=== PATIENT | male | born 1960 | race Two or more races ===

== ENCOUNTER 2017-03-05 11:42 | Emergency (ER) | payer OTHER ==
[~2017-03-05] VITALS: Ht 172.7 cm; Wt 88.3 kg
[~2017-03-05 11:42] MED LIST: IBUP600T26 PO; IBUP800T23 PO
[2017-03-05 11:48] VITALS: BP 160/95; PULSE 88; RESP 16; TEMP 98; O2SAT 97
[2017-03-05] MEDS ORDERED: RESP: ALBUTEROL 2.5 MG/IPRATROPIUM 0.5 MG NEB (SCH) INH ONE (12:00)
--- NOTE | 2017-03-05 12:35 | PD ---
HPI Chief Complaint: ENT Complaint Time Seen by Provider: 11:45 Travel History International Travel<30 days: No Contact w/Intl Traveler<30days: No Traveled to known affect area: No History of Present Illness HPI 56-year-old male presents emergency Department with 1 week history of upper respiratory symptoms including headache, sinus congestion, postnasal drip , left ear pain, and congestion in the chest. He states his cough is worse at night. He is has some wheezing and shortness of breath with exertion. Return beginning and not currently. His cough is not very productive. His upper respiratory symptoms including headache is worse in the past 2 days. He has mild sore throat and irritation, but no difficulty swallowing. He denies heartburn, nausea, or vomiting. He does not normally use an inhaler but has not past for bronchitis. He has no known drug allergies. PFSH Past Medical History Diminished Hearing: No Kidney Stones: Yes Integumentary: Yes (PSORIASIS) Immunizations Current: Yes Influenza Vaccination: No Past Surgical History Other Surgery: Yes (CYST REMOVAL RIGHT BUTTOCK) Social History Alcohol Use: Yes (rare) Tobacco Use: No Substance Use: No Allergies-Medications (Allergen,Severity, Reaction): Coded Allergies: No Known Allergies (Verified , 03/05/17) Reported Meds & Prescriptions Reported Meds & Active Scripts Active Ibuprofen 600 Mg Tab 600 Mg PO Q8H PRN Ibuprofen 800 Mg Tab 800 Mg PO Q6H PRN Review of Systems Except as stated in HPI: all other systems reviewed are Neg General / Constitutional: No: Fever Eyes: No: Visual changes HENT: No: Headaches Cardiovascular: No: Chest Pain or Discomfort Respiratory: No: Shortness of Breath Gastrointestinal: No: Abdominal Pain Genitourinary: No: Dysuria Musculoskeletal: No: Pain Skin: No Rash Neurologic: No: Weakness Psychiatric: No: Depression Endocrine: No: Polydipsia Hematologic/Lymphatic: No: Easy Bruising Physical Exam Narrative GENERAL: Patient appears in no acute distress. SKIN: Warm and dry. Normal color. Normal turgor. HEAD: Atraumatic. Normocephalic. EYES: Pupils equal and round. No scleral icterus. No injection or drainage. ENT: No nasal bleeding or discharge. Mucous membranes pink and moist. Pharynx is somewhat irritated with cobblestoning and postnasal drip present in the posterior pharynx. TMs are dull bilaterally no injection. Patient has moderate sinus tenderness more on the left than the right in both frontal and maxillary sinuses. NECK: Trachea midline. Supple and nontender without significant lymphadenopathy. CARDIOVASCULAR: Regular rate and rhythm. RESPIRATORY: No accessory muscle use. Mild diffuse wheezes throughout to auscultation. No rales or rhonchi. Breath sounds equal bilaterally. GASTROINTESTINAL: Abdomen soft, non-tender, nondistended. Hepatic and splenic margins not palpable. MUSCULOSKELETAL: Extremities without clubbing, cyanosis, or edema. No obvious deformities. NEUROLOGICAL: Awake and alert. No obvious cranial nerve deficits. Motor grossly within normal limits. Five out of 5 muscle strength in the arms and legs. Normal speech. PSYCHIATRIC: Appropriate mood and affect; insight and judgment normal. Data Data Last Documented VS Vital Signs Date Time Temp Pulse Resp B/P Pulse Ox O2 Delivery O2 Flow Rate FiO2 03/05/17 11:48 98.0 88 16 160/95 97 Orders Albuterol-Ipratropium Neb (Duoneb Neb) (03/05/17 12:00) [facility] Medical Decision Making Medical Screen Exam Complete: Yes Emergency Medical Condition: Yes Differential Diagnosis Upper restaurant infection. Sinusitis. Postnasal drip. Cough. Wheezing. Bronchitis. Narrative Course Patient is medically stable at time of exam. Patient is given a DuoNeb to see if it helps him symptomatically. Patient feels improved after his DuoNeb. Patient is felt to have sinusitis and wheezy bronchitis. Patient will be given amoxicillin 875 twice a day 10 days. Patient is given Flonase nasal spray 2 sprays each nostril daily. Patient is given albuterol metered-dose inhaler 2 puffs every 4-6 hours when necessary wheezing. Patient is given Robitussin with codeine 1-2 teaspoons every 6 hours when necessary cough. 120 mL's. Patient follow with his primary care physician if symptoms do not improve or worsen. Diagnosis Primary Impression: Sinusitis, acute Qualified Code: J01.40 - Acute non-recurrent pansinusitis Additional Impression: Acute wheezy bronchitis Referrals: Primary Care Physician Patient Instructions: Acute Bronchitis (ED), General Instructions, How to Use a Metered-Dose Inhaler (ED), Sinusitis (ED) Additional Instructions: Patient feels improved after his DuoNeb. Patient is felt to have sinusitis and wheezy bronchitis. Patient will be given amoxicillin 875 twice a day 10 days. Patient is given Flonase nasal spray 2 sprays each nostril daily. Patient is given albuterol metered-dose inhaler 2 puffs every 4-6 hours when necessary wheezing. Patient is given Robitussin with codeine 1-2 teaspoons every 6 hours when necessary cough. 120 mL's. Patient follow with his primary care physician if symptoms do not improve or worsen. Med/Other Pt SpecificInfo: Prescription(s) given Scripts Guaifenesin-Codeine Liq (Guaifenesin AC Liq)100-10 Mg/5 Ml Syrp10 Ml PO Q6H PRN (COUGH) #120 ML Ref 0 Prov:Silke Joseph MD 03/05/17 Fluticasone Nasal [place] (Flonase Allergy Relief Children Nasal [place])50 Mcg/Act Spray2 [place] EACH NARE DAILY #1 BOTTLE 50 mcg/spray Prov:Silke Joseph MD 03/05/17 Amoxicillin 875 Mg Vtf108 Mg PO BID #20 TAB Prov:Silke Joseph MD 03/05/17 Albuterol 18 GM Inh (Ventolin Hfa 18 GM Inh)90 Mcg/Act Aer2 Puff INH Q4-6H PRN ( SHORTNESS OF BREATH) #1 INHALER Prov:Silke Joseph MD 03/05/17 Disposition: 01 DISCHARGE HOME Condition: Stable Tahir Burnett March 05, 2017 12:35
[2017-03-05] MEDS ORDERED: GUAISYP4 PO (12:37)
[2017-03-05] MEDS ORDERED: FLUT1SPR9 EACH NARE (12:37)
[2017-03-05] MEDS ORDERED: VENTAER INH (12:37)
[2017-03-05] MEDS ORDERED: AMOX875T PO (12:37)
== END 2017-03-05 13:05 | disposition home or self-care (01) ==
LOC: PHEFT 11:42
DX: J01.90 Acute sinusitis, unspecified (principal); J40 Bronchitis, not specified as acute or chronic
CPT/HCPCS: 94664; 99283